=== PATIENT | female | born 1940 | race Hispanic/Latino ===

== ENCOUNTER 2020-08-06 09:13 | Outpatient (CLI) | payer MEDICARE ==
--- NOTE | 2020-08-06 10:41 | Mammography Report ---
DIGITAL SCREENING MAMMOGRAM WITH CAD, 08/06/2020 CLINICAL INFORMATION / INDICATION: Routine screening mammography. TECHNIQUE: Digital bilateral 2D mammography was obtained in the craniocaudal and mediolateral obliqu e projections. This examination was interpreted with the benefit of Computer-Aided Detection analysis . COMPARISON: 08/03/2019, 08/03/2018, 08/03/2017, 09/28/2015 FINDINGS: Breast Density: The breasts are heterogeneously dense, which may obscure small masses. No dominant mass, suspicious calcifications, or architectural distortion in either breast. Biopsy clips are again noted in both breasts. IMPRESSION: No mammographic evidence of malignancy. Follow up recommendation: Routine yearly BI-RADS Category 2: Benign. A "normal" or negative report should not discourage follow up or biopsy of a clinically significant f inding. A written summary of these findings will be mailed to the patient. The patient will be entered into a mammography reporting system which will generate a reminder letter for the patient's next appointmen t at the appropriate interval. The [employer] recommends yearly mammograms starting at age 40 and continuing as l daniel as a woman is in good health. Breast MRI is recommended for women with an approximate 20-25% or greater lifetime risk of breast cancer, including women with a strong family history of breast or ova eusebia cancer or who have been treated for Hodgkin's disease. Signer Name: Alma Pagan MD Signed: 08/06/2020 10:36 AM Workstation Name: [id number]
== END 2020-08-06 09:14 | disposition home or self-care (01) ==
LOC: SPVWC 09:13
PROVIDERS: ATTEND Surgery
DX: Z12.31 Encounter for screening mammogram for malignant neoplasm of breast (principal); N64.89 Other specified disorders of breast
CPT/HCPCS: 77067

== ENCOUNTER 2021-08-07 08:26 | Outpatient (CLI) | payer MEDICARE | END 2021-08-07 08:27 | disposition home or self-care (01) | LOC: MAMMO 08:26 | PROVIDERS: ATTEND Internal Medicine | DX: Z12.31 Encounter for screening mammogram for malignant neoplasm of breast (principal) | CPT/HCPCS: 77067 ==

== ENCOUNTER 2021-09-19 08:28 | Outpatient (CLI) | payer MEDICARE ==
--- NOTE | 2021-09-19 09:29 | Ultrasound Report ---
ULTRASOUND BREAST LEFT LIMITED, 09/19/2021 CLINICAL INFORMATION / INDICATION: ABNORMAL BREAST ASYMMETRY. Patient presents as a callback from [facility] for further evaluation of a new focal asymmetric density in the left breast. TECHNIQUE: Targeted ultrasound evaluation was performed of the area of interest. COMPARISON: Prior mammogram 08/07/2021 FINDINGS: Corresponding with the mammographic finding, there is an irregular hypoechoic mass in the left breast 3:00 position located 4 cm from the nipple measuring up to 1.5 x 1.2 x 1.7 cm. Foci of internal vasc ularity are demonstrated. Targeted ultrasound of the left axilla reveals several morphologically norm al lymph nodes. No suspicious lymphadenopathy identified. IMPRESSION: 1. An irregular hypoechoic mass corresponds with the mammographic finding and is moderately suspiciou s for malignancy, ultrasound-guided biopsy is recommended. Follow up recommendation: Biopsy BI-RADS Category 4: SUSPICIOUS FOR MALIGNANCY. A normal or "negative" report should not preclude biopsy or follow-up of a clinically suspicious find ing. Signer Name: Kathie Meza MD Signed: 09/19/2021 9:25 AM Workstation Name: [id number]
== END 2021-09-19 08:29 | disposition home or self-care (01) ==
LOC: MAMMO 08:28
PROVIDERS: ATTEND Internal Medicine
DX: N63.21 Unspecified lump in the left breast, upper outer quadrant (principal)

== ENCOUNTER 2021-10-04 08:17 | Outpatient (CLI) | payer MEDICARE ==
--- NOTE | 2021-10-04 10:08 | Ultrasound Report ---
ULTRASOUND GUIDED LEFT BREAST BIOPSY, 10/04/2021 Left DIAGNOSTIC MAMMOGRAM CLINICAL INFORMATION / INDICATION: POST US BX. Left breast nodule, here for biopsy COMPARISON: Left breast ultrasound from 09/19/2021 and screening study from 08/07/2021 PROCEDURE: Risks, benefits, and indications to the procedure were discussed with the patient in detail, includin g bleeding, infection, hematoma formation, and inadequate tissue sampling. The patient agreed to proc eed with both verbal and written consent. A timeout procedure was performed with two patient identifi ers. The breast was prepped and draped in the usual sterile fashion. Lidocaine 1% was used for local anest hesia. Under direct ultrasound guidance, 3 separate 14 gauge core samples were obtained of the left b reast. A biopsy marker was then placed. Biopsy device was removed and hemostasis achieved with manua l pressure. A sterile dressing was applied to the skin. The patient tolerated the procedure without difficulty. No complications were encountered. Postbiopsy instructions were discussed with the patient and given in writing. Specimens were sent to pathology. The patient was then sent for a confirmatory mammogram to demonstrate adequate clip positioning in th e area in question. IMPRESSION: 1. Technically successful ultrasound guided left breast biopsy. 2. Satisfactory positioning of the biopsy clip on the post procedure mammogram. Biopsy results are pending and will be reported in an addendum. Signer Name: David Villarreal MD Signed: 10/04/2021 10:04 AM Workstation Name: [id number]
== END 2021-10-04 08:18 | disposition home or self-care (01) ==
LOC: US 08:17
PROVIDERS: ATTEND Internal Medicine
DX: N63.20 Unspecified lump in the left breast, unspecified quadrant (principal); R92.8 Other abnormal and inconclusive findings on diagnostic imaging of breast; M19.90 Unspecified osteoarthritis, unspecified site; Z79.899 Other long term (current) drug therapy; Z98.41 Cataract extraction status, right eye; Z98.42 Cataract extraction status, left eye; Z98.890 Other specified postprocedural states
CPT/HCPCS: 88305

== ENCOUNTER 2021-11-07 07:05 | Outpatient (CLI) | payer MEDICARE ==
--- NOTE | 2021-11-07 10:22 | PET Report ---
PET-CT SCAN INDICATION / CLINICAL INFORMATION: C50.512/M19.90/M81.0. STAGING: Initial Staging TECHNIQUE: Tumor imaging, positron emission tomography (PET) with concurrently acquired computed tomography (CT) for attenuation correction and anatomical localization; Skull Base to Mid Thigh - DOSE: 13.8 mCi F-18 FDG was administered IV per protocol in the right wrist - GLUCOSE: Patient's blood glucose at that time was (mg/dL): 92 - UPTAKE TIME: PET scan performed approximately 60 minutes after radiotracer administration. - CT SCAN DESCRIPTION: No oral or IV contrast. All CT scans at this location are performed using CT d ose reduction for ALARA by means of automated exposure control. COMPARISON: 08/07/2021 FINDINGS: HEAD / NECK: No abnormal radiotracer uptake in the neck. No significant CT abnormality. CHEST: Previously biopsied left breast mass is mildly hypermetabolic, measuring 3.9 in maximum SUV. T here is no hypermetabolic lymphadenopathy in the left axilla or elsewhere within the chest. Small lef t axillary lymph node with presumed biopsy marker (series 3 image 76) is nonhypermetabolic (SUV max m easures 1.3). No hypermetabolic lung nodules. ABDOMEN / PELVIS: No abnormal radiotracer uptake in the abdomen. No significant CT abnormality. LOWER EXTREMITIES: No abnormal radiotracer uptake in the visualized lower extremities. No significant CT abnormality. SKELETAL STRUCTURES: No hypermetabolic bone lesions. No significant CT abnormality. ADDITIONAL FINDINGS: No additional significant findings. IMPRESSION: 1. Left breast mass is mildly hypermetabolic, compatible with known malignancy. 2. No hypermetabolic lymphadenopathy. Small left axillary lymph node with presumed biopsy marker is n ot hypermetabolic. 3. No additional sites of FDG avid neoplastic disease. Signer Name: Eber Subramanian MD Signed: 11/07/2021 10:18 AM Workstation Name: [id number]
== END 2021-11-07 07:06 | disposition home or self-care (01) ==
LOC: PET 07:05
PROVIDERS: ATTEND Internal Medicine Hematology & Oncology
DX: C50.512 Malignant neoplasm of lower-outer quadrant of left female breast (principal); M19.90 Unspecified osteoarthritis, unspecified site; M81.0 Age-related osteoporosis without current pathological fracture
CPT/HCPCS: 78815; 82962; A9552